=== PATIENT | female | born 2000 | race Caucasian/White ===

== ENCOUNTER 2022-04-11 17:59 | Emergency (ER) | payer MEDICAID ==
[~2022-04-11] VITALS: Ht 170.2 cm; Wt 68.5 kg
[2022-04-11 18:28] VITALS: BP 114/68
== END 2022-04-11 19:31 | disposition home or self-care (01) ==
LOC: ER 17:59
DX: F10.129 Alcohol abuse with intoxication, unspecified (principal); Y90.0 Blood alcohol level of less than 20 mg/100 ml; R11.2 Nausea with vomiting, unspecified
CPT/HCPCS: 99283